=== PATIENT | male | born 1975 | race African-American/Black ===

== ENCOUNTER 2018-10-30 04:54 | Emergency (ER) | payer MEDICAID ==
[~2018-10-30] VITALS: Ht 180.3 cm; Wt 77.0 kg
[2018-10-30 05:03] VITALS: BP 116/71
== END 2018-10-30 07:39 | disposition left against medical advice (07) ==
LOC: ER 04:54
DX: G43.909 Migraine, unspecified, not intractable, without status migrainosus (principal); F12.10 Cannabis abuse, uncomplicated; R42 Dizziness and giddiness; F31.9 Bipolar disorder, unspecified; Z96.651 Presence of right artificial knee joint; Z98.890 Other specified postprocedural states; Z88.6 Allergy status to analgesic agent; Z88.1 Allergy status to other antibiotic agents; Z88.8 Allergy status to other drugs, medicaments and biological substances; Z91.018 Allergy to other foods
CPT/HCPCS: 99281